=== PATIENT | female | born 1985 | race African-American/Black ===

== ENCOUNTER 2020-03-07 05:11 | Emergency (ER) | payer OTHER ==
[~2020-03-07] VITALS: Ht 157.5 cm; Wt 49.9 kg
[2020-03-07] MEDS ORDERED: TRAMADOL 50 MG50 MG PO (05:47)
[2020-03-07] MEDS ORDERED: NAPROXEN375 MG PO (05:47)
[2020-03-07 07:08] VITALS: BP 104/81
== END 2020-03-07 07:10 | disposition home or self-care (01) ==
LOC: ER 05:11
DX: S50.02XA Contusion of left elbow, initial encounter (principal); S20.211A Contusion of right front wall of thorax, initial encounter; S46.912A Strain of unspecified muscle, fascia and tendon at shoulder and upper arm level, left arm, initial encounter; J45.909 Unspecified asthma, uncomplicated; Y04.2XXA Assault by strike against or bumped into by another person, initial encounter; Y93.89 Activity, other specified; Y92.89 Other specified places as the place of occurrence of the external cause; Y99.8 Other external cause status